=== PATIENT | female | born 1940 | race Caucasian/White ===

== ENCOUNTER → 2016-03-02 | Outpatient (CLI) | payer OTHER ==
--- NOTE | 2016-03-02 16:32 | DX ---
Bilateral Hips-2 Views dated March 02, 2016 Indication: Joint pain. Evaluate for arthritis. Technique: Weight-bearing AP pelvis and bilateral frog-leg lateral views. Comparison: Lumbar spine series dated April 22, 2015. Findings: Moderate bilateral hip osteoarthritis is evidenced by superior joint space narrowing, subch ondral sclerosis, and collar of osteophytes along the right and left femoral head. Mild osteoarthriti s of the sacroiliac joints, surgical clips in the left hemipelvis, and benign dystrophic calcificatio n in the pelvis are all unchanged since April 2015. Moderate volume of retained stool is present thro ughout the right and left colon. Impression: 1. Moderate bilateral hip osteoarthritis. 2. No evidence of erosive arthropathy.
== END ==
LOC: BMCIMAGING 14:27
PROVIDERS: ATTEND Internal Medicine Rheumatology
DX: M16.0 Bilateral primary osteoarthritis of hip (principal)

== ENCOUNTER 2017-02-06 09:04 | Inpatient (IN) | payer OTHER ==
[~2017-02-06 09:04] MED LIST: ROPIVACAINE 0.2% 80 MG, EPINEPHrine 0.2 MG, KETOROLAC TROMETHAMINE 30 MG in SYRINGE 0 ML IU ONE; TRANEXAMIC ACID 3,000 MG in NS 50 ML IRR ONE; TRANEXAMIC ACID 3,000 MG/50 ML BAG IRR ONE; VANCOMYCIN 1 GM VIAL ONE
--- NOTE | 2017-02-06 09:18 | PDHPUP ---
History & Physical Update H&P update statement: This history and physical update is based on an assessment of the patient which was completed after admission or registration (within 24 hours), but prior to the surgery/procedure. H&P update: H&P reviewed & patient examined, no change in patient's condition since H&P completed
[2017-02-06] MEDS ORDERED: ACETAMINOPHEN 325 MG TAB PO ONE (09:19)
[2017-02-06] MEDS ORDERED: FAMOTIDINE 20 MG TAB PO ONE (09:19)
[2017-02-06] MEDS ORDERED: DEXAMETHASONE 4 MG/ML VIAL IVP ONE (09:19)
[2017-02-06] MEDS ORDERED: ceFAZolin 2 GM/SWFI 2 GM/20 ML SYR IVP ONE (09:19)
[2017-02-06] MEDS ORDERED: LIDOCAINE 1% 2 ML INJ ID PRN (09:21)
[2017-02-06] MEDS ORDERED: LR 1,000 ML IV ONE (09:21)
--- NOTE | 2017-02-06 10:18 | PDANEPAE ---
ANE History of Present Illness R TKA REVISION. ANE Past Medical History - Cardiovascular History Hx Hypertension: No Hx Arrhythmias: No Hx Chest Pain: No Hx Coronary Artery / Peripheral Vascular Disease: No Hx CHF / Valvular Disease: No Hx Palpitations: No Cardiovascular History Comment: hyperlipidemia - Pulmonary History Hx COPD: No Hx Asthma/Reactive Airway Disease: No Hx Recent Upper Respiratory Infection: No Hx Oxygen in Use at Home: No Hx Sleep Apnea: No Sleep Apnea Screening Result - Last Documented: Negative - Neurologic History Hx Cerebrovascular Accident: No Hx Seizures: No Hx Dementia: No - Endocrine History Hx Diabetes: No Obesity: moderate - Renal History Hx Renal Disorders: No - Liver History Hx Hepatic Disorders: No - Neurological & Psychiatric Hx Hx Neurological and Psychiatric Disorders: No - Cancer History Hx Cancer: Yes 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 - Congenital Disorder History Hx Congenital Disorders: No - GI History GERD: moderate Hx Gastrointestinal Disorders: No - Other Health History Other Health History: none - Chronic Pain History Chronic Pain: Yes (both knees) - Surgical History Prior Surgeries: R knee scope ANE Review of Systems Review of Systems: - Exercise capacity METS (RN): 4 METS ANE Patient History - Allergies Allergies/Adverse Reactions: tramadol Allergy (Intermediate, Verified 01/02/17 10:46) Unknown - Home Medications Home Medications: Ascorbic Acid [Vitamin C 500 mg (*)] 500 mg PO DAILY 12/26/16 [Last Taken ] Cyanocobalamin [Vitamin B12 (*)] 1,000 mcg PO DAILY 12/26/16 [Last Taken ] Diclofenac Sodium [Voltaren 75 MG (*)] 75 mg PO DAILY PRN 12/26/16 [Last Taken 01/30/17] [place]-3 Fatty Acids [Fish Oil 1000 mg (*)] 1,000 mg PO DAILY 12/26/16 [Last Taken 01/30/17] - NPO status NPO Since - Liquids (Date): 02/06/17 NPO Since - Liquids (Time): 08:00 NPO Since - Solids (Date): 02/05/17 NPO Since - Solids (Time): 20:00 - Anes Hx Anes Hx: no prior problems - Smoking Hx Smoking Status: Never smoked Marijuana use: No - Alcohol Use Alcohol Use: None - Family Anes Hx Family Anes Hx: none Family Hx Anesthesia Complications: none ANE Labs/Vital Signs - Vital Signs Blood Pressure: 117/72 Heart Rate: 71 Respiratory Rate: 20 O2 Sat (%): 95 Height: 162.56 cm Weight: 61.235 kg ANE Physical Exam - Airway Neck exam: FROM Mallampati Score: Class 1 Mouth exam: normal dental/mouth exam - Pulmonary Pulmonary: clear to auscultation - Cardiovascular Cardiovascular: regular rate and rhythym - ASA Status ASA Status: II ANE Anesthesia Plan Anesthesia Plan: spinal Regional Anesthesia: adductor canal FNB
[2017-02-06] MEDS ORDERED: MIDAZOLAM 2 MG/2 ML VIAL ONE (10:39)
[2017-02-06] MEDS ORDERED: MIDAZOLAM 2 MG/2 ML VIAL IVP ONE ×2 (10:39→14:48)
[2017-02-06] MEDS ORDERED: fentaNYL 100 MCG/2 ML INJ ONE (10:50)
[2017-02-06] MEDS ORDERED: PROPOFOL 200 MG/20 ML VIAL ONE (10:51)
[2017-02-06] MEDS ORDERED: MAGNESIUM HYDROXIDE 30 ML UDCUP PO PRN (11:25)
[2017-02-06] MEDS ORDERED: POLYETHYLENE GLYCOL 3350 17 GM PKT PO PRN (11:25)
[2017-02-06] MEDS ORDERED: METOCLOPRAMIDE 10 MG/2 ML VIAL IVP PRN (11:25)
[2017-02-06] MEDS ORDERED: TEMAZEPAM 15 MG CAP PO PRN (11:25)
[2017-02-06] MEDS ORDERED: ONDANSETRON DISINTEGRATING 4 MG TAB PO PRN (11:25)
[2017-02-06] MEDS ORDERED: PROMETHAZINE HCL 25 MG SUPPR PR PRN (11:25)
[2017-02-06] MEDS ORDERED: LACTULOSE 20 GM/30 ML UDCUP PO PRN (11:25)
[2017-02-06] MEDS ORDERED: CYCLOBENZAPRINE 10 MG TAB PO PRN (11:25)
[2017-02-06] MEDS ORDERED: ONDANSETRON 4 MG/2 ML VIAL IVP PRN (11:25)
[2017-02-06] MEDS ORDERED: DIPHENOXYLATE/ATROPINE LOMOTIL 1 TAB PO PRN (11:25)
[2017-02-06] MEDS ORDERED: BISACODYL 10 MG SUPP PR PRN (11:25)
[2017-02-06] MEDS ORDERED: PROMETHAZINE HCL 25 MG/ML INJ IVP PRN (11:25)
[2017-02-06] MEDS ORDERED: diphenhydrAMINE 25 MG CAP PO PRN (11:25)
[2017-02-06] MEDS ORDERED: LR 1,000 ML IV SCH (11:30)
[2017-02-06] MEDS ORDERED: ROPIVACAINE HCL 150 MG/30 ML INJ ONE (11:52)
[2017-02-06] MEDS ORDERED: PHENYLEPHRINE HCL 100 MCG/ML SYR ONE (11:54)
[2017-02-06] MEDS ORDERED: NALOXONE HCL 0.4 MG/ML INJ IVP PRN (12:04)
[2017-02-06] MEDS ORDERED: fentaNYL 100 MCG/2 ML INJ IVP PRN (12:04)
--- NOTE | 2017-02-06 12:16 | POSTOPPROG ---
Post Op Note Date of Operation: 02/06/17 Surgeon: Jo Buitrago [employer] Helper: guero buitrago Anesthesiologist: dr. hoang Anesthesia: Spinal, Other (Specify) (adductor canal block) Pre-op Diagnosis: right knee OA Post-op Diagnosis: same Indication: right knee pain due to OA that failed conservative measures Procedure: R TKA Findings: severe knee OA Inf/Abcess present in the surg proc area at time of surgery?: No EBL: 50-100
--- NOTE | 2017-02-06 13:06 | POSTANESTH ---
Post Anesthetic Evaluation Cardiovascular Status: Normal, Stable Respiratory Status: Normal, Stable Level of Consciousness/Mental Status: Can Participate in Eval Pain Control: Adequate, Prn Tx Ordered Nausea/Vomiting Control: Adequate, Prn Tx Ordered Complications Possibly Related to Anesthesia: None Noted
[2017-02-06] MEDS: ACETAMINOPHEN 325 MG TAB PO SCH ×3 (14:44→23:03)
[2017-02-06] MEDS: ceFAZolin 2 GM/SWFI 2 GM/20 ML SYR IVP SCH (18:20)
[2017-02-06] MEDS: FAMOTIDINE 20 MG TAB PO SCH (21:19)
[2017-02-06] MEDS: ASPIRIN EC 81 MG TAB PO SCH (21:19)
[2017-02-06] MEDS: SENNOSIDES/DOCUSATE SODIUM TAB PO SCH (21:19)
[2017-02-06] MEDS: oxyCODONE IR 5 MG TAB PO PRN (23:03)
[2017-02-07] MEDS: ceFAZolin 2 GM/SWFI 2 GM/20 ML SYR IVP SCH (03:51)
[2017-02-07] MEDS: ACETAMINOPHEN 325 MG TAB PO SCH ×4 (05:56→23:02)
[2017-02-07 06:53] LABS: HEMATOCRIT 33.2 % (38.0-47.0)
[2017-02-07] MEDS: SENNOSIDES/DOCUSATE SODIUM TAB PO SCH ×2 (08:55→21:56)
[2017-02-07] MEDS: FAMOTIDINE 20 MG TAB PO SCH ×2 (08:55→21:56)
[2017-02-07] MEDS: ASPIRIN EC 81 MG TAB PO SCH ×2 (08:55→21:56)
[2017-02-07] MEDS: oxyCODONE IR 5 MG TAB PO PRN ×4 (11:48→21:56)
--- NOTE | 2017-02-07 17:47 | GOP ---
[f rep st] OPERATIVE REPORT DATE OF OPERATION: 02/06/2017 SURGEON: Tika Martínez MD VEGETABLE I FARMWORKER: ROSALINDA Taylor. ANESTHESIA: Spinal. PREOPERATIVE DIAGNOSIS: Right knee osteoarthritis. POSTOPERATIVE DIAGNOSIS: Right knee osteoarthritis. PROCEDURE PERFORMED: Total knee arthroplasty. FINDINGS/PATHOLOGY: Severe medial and patellofemoral osteoarthritis. ESTIMATED BLOOD LOSS: 30 cc. INDICATIONS: This is a 76-year-old female with severe and progressive pain and deformity of the right knee unresponsive to conservative care. Risks and benefits of the surgical intervention were explained in detail. DESCRIPTION OF PROCEDURE: The patient was brought to the operative room and placed on the table in the supine position. Spinal anesthesia was induced without difficulty. A pneumatic tourniquet was applied about the right proximal thigh, and the leg was prepped and draped in a sterile fashion. The leg rodriguez was applied. After exsanguination by elevation the tourniquet was inflated to 275 mm of mercury. Incision was made anterior medial from the tibial tuberosity to a point 2 cm proximal to the superior pole of the patella. Medial parapatellar arthrotomy was carried out from the superior pole of the patella and posteriorly in line with the fibers of the Type II VMO. The medial collateral ligament was elevated and the infrapatellar fat pad was resected. The patella was everted and the articular surface was excised. A 32 mm patellar button was placed. The distal femoral guide hole was drilled and the 6 degree alignment debby was placed. A 10 mm distal femoral cut was made without difficulty. Attention was turned to the tibia and a standard 9 mm cut based on the lateral tibial condyle was performed. The tibial articular surface was excised without difficulty. Attention was turned back to the femur and a size 4 Triathlon femoral cutting block was positioned. Anterior, posterior, and chamfer cuts were made, followed by the intercondylar box cut. The knee was extended and the remnants of the medial and lateral meniscus were excised. The posterior capsule was injected with ropivacaine, epinephrine, and Toradol. A size 4 MIS mini-keel tibial tray was positioned. Trial reduction was then carried out. There was excellent range of motion, alignment, and stability using the 9 mm polyethylene. All trials were then removed. The joint was thoroughly irrigated and carefully dried. Two packages of cement and 2 grams of vancomycin were mixed in the vacuum mixer and placed on the fixation surfaces of all surfaces of the components. The components were implanted and all excess cement was thoroughly removed. The permanent 9 mm polyethylene was placed without difficulty. The tourniquet was deflated and all bleeders were coagulated. The wound was thoroughly irrigated and closed using interrupted sutures of 2-0 Vicryl for the joint capsule. The subcu was closed with 3-0 Vicryl and the skin with 4-0 Monocryl. Dermabond and Steri-Strips were applied followed by a compressive dressing. The patient was then moved from the operating room to the recovery room in good condition, having tolerated the procedure well. /[id number]/MODL MTDD
--- NOTE | 2017-02-07 20:01 | SOAPPROG ---
VAHID Progress Note Assessment/Plan: Assessment: s/p TKA POD 1 doing well work with PT d/c home tomorrow Plan: 02/07/17 20:01 Objective: Vital Signs Temp Pulse Resp BP Pulse Ox 36.4 C 61 16 106/71 96 02/07/17 16:00 02/07/17 16:00 02/07/17 16:00 02/07/17 16:00 02/07/17 16:00 Laboratory Results 02/07/17 05:45 02/06/17 02/07/17 02/08/17 05:59 05:59 05:59 Intake Total 1710 680 Output Total 1230 Balance 480 680 ICD10 Worksheet Patient Problems: Problems Problem Status Onset Primary localized osteoarthritis of right knee Acute
[2017-02-08] MEDS: oxyCODONE IR 5 MG TAB PO PRN ×3 (02:38→11:03)
[2017-02-08 04:32] LABS: HEMATOCRIT 32.9 % (38.0-47.0); HEMOGLOBIN 10.6 g/dL (12.6-16.3)
[2017-02-08] MEDS: ACETAMINOPHEN 325 MG TAB PO SCH ×2 (06:02→11:46)
[2017-02-08 07:23] VITALS: BP 111/65; PULSE 64; RESP 14; TEMP 97.9; O2SAT 97
--- NOTE | 2017-02-08 07:29 | SOAPPROG ---
SOAP Progress Note Assessment/Plan: Assessment: Kyara is doing well POD 1 s/p R TKA pain is well controlled on oxycodone anemia: level expectedi nitially postop VTE ppx: recommend ASA 81 mg BID for 4 weeks D/c planning: d/c to home today Plan: 02/08/17 07:27 Subjective: Kyara is resting comfortably this morning, denies SOB, chest pain and N/V. Objective: Vital Signs Temp Pulse Resp BP Pulse Ox 36.6 C 64 14 111/65 97 02/08/17 07:21 02/08/17 07:21 02/08/17 07:21 02/08/17 07:21 02/08/17 07:21 Laboratory Results 02/08/17 04:16 02/07/17 02/08/17 02/09/17 05:59 05:59 05:59 Intake Total 1710 1130 Output Total 1230 Balance 480 1130 RLE: incision dressing is clean and dry, NVI, +pf/df ICD10 Worksheet Patient Problems: Problems Problem Status Onset Primary localized osteoarthritis of right knee Acute
[2017-02-08] MEDS: SENNOSIDES/DOCUSATE SODIUM TAB PO SCH (08:27)
[2017-02-08] MEDS: ASPIRIN EC 81 MG TAB PO SCH (08:28)
[2017-02-08] MEDS: FAMOTIDINE 20 MG TAB PO SCH (08:28)
--- NOTE | 2017-02-08 12:12 | ASDISCHSUM ---
Discharge Information Plan Status:Home with No Needs Medically Cleared to Leave: Discharge Date:02/08/2017 11:58 AM CM D/C Disposition:Home, Routine, Self-Care ADT D/C Disposition:Home, Routine, Self-Care Projected Discharge Date:02/08/2017 11:58 AM Transportation at D/C: Discharge Delay Reason: Follow-Up Date:02/08/2017 11:58 AM Discharge Slot: Final Diagnosis: Placement Information Patient Contact Information Contact Name:HAKEEM Relationship:Emile Address: Work Phone: City: [facility] Phone: State/Zip Code: Email: Financial Information Financial Class: Primary Plan Desc:MEDICARE INPATIENT Primary Plan Number:[id number] Secondary Plan Desc:[employer] INSURANCE Secondary Plan Number:[id number] Assessment Information [facility] CM Progress Note CM Note CM Note Notes: No IM required as pt her <24hrs Date Signed: 02/08/2017 12:11 PM Electronically Signed By:ERICK Castro Intervention Information
== END 2017-02-08 11:58 | disposition home or self-care (01) | DRG 470 ==
LOC: F3N 09:04
PROVIDERS: ADMIT Orthopaedic Surgery; ATTEND Orthopaedic Surgery
PROC: 0SRC0J9 Replacement of Right Knee Joint with Synthetic Substitute, Cemented, Open Approach (ICD-10-PCS; principal; 2017-02-06 11:15)
DX: M17.11 Unilateral primary osteoarthritis, right knee (principal); E78.5 Hyperlipidemia, unspecified; G89.29 Other chronic pain; Z85.09 Personal history of malignant neoplasm of other digestive organs
CPT/HCPCS: 97116-GP; 97161-GP; 97165-GO; G8978-GP-CJ; G8979-GP-CI; G8980-GP-CI; G8987-GO-CI; G8988-GO-CH; G8989-GO-CH; J0171; J0690; J1100; J1885; J2250; J2370; J2704; J2795; J3010; J3370

== ENCOUNTER → 2017-08-07 | Outpatient (CLI) | payer OTHER | LOC: FIMAGING 08:55 | PROVIDERS: ATTEND Orthopaedic Surgery | DX: R93.8 Abnormal findings on diagnostic imaging of other specified body structures (principal); Z96.651 Presence of right artificial knee joint | CPT/HCPCS: 78315; A9503 ==